=== PATIENT | female | born 1950 | race Caucasian/White ===

== ENCOUNTER 2016-11-13 11:09 | Emergency (ER) | payer OTHER ==
[~2016-11-13] VITALS: Ht 152.4 cm; Wt 76.2 kg
[~2016-11-13 11:09] MED LIST: ANTIVERT25 MG PO; Aleve PO; CELEBREX200 MG PO; Caltrate 600/400 PO; Ecotrin PO; FEOSOL325 MG PO; Feosol PO; Hydrodiuril,Oretic,E PO; LASIX20 MG; LISINOPRIL20 MG; Lasix PO; Miralax, Glycolax PO; NOHOMEMEDS; Norvasc PO; Percocet 5/325,Endoc PO; Senokot S,Pericolace PO; Vicodin,Norco 5/325 PO
[2016-11-13] MEDS ORDERED: FLEXERIL10 MG PO (13:59)
[2016-11-13] MEDS ORDERED: FOLIC ACID1 MG PO (14:55)
[2016-11-13] MEDS ORDERED: METHOTREXATE2.5 MG PO (14:55)
[2016-11-13] MEDS ORDERED: FUROSEMIDE20 MG PO (14:55)
[2016-11-13] MEDS ORDERED: AMLODIPINE BESYL5 MG PO (14:56)
[2016-11-13 15:09] VITALS: BP 154/74
== END 2016-11-13 15:09 | disposition home or self-care (01) ==
LOC: RME 11:09 → EME 11:09 → RME 15:09
DX: M54.42 Lumbago with sciatica, left side (principal)
CPT/HCPCS: 72100; 99281; 99284